=== PATIENT | female | born 1985 | race Asian ===

== ENCOUNTER 2017-06-21 17:48 | Emergency (ER) | payer SELFPAY ==
[2017-06-21] MEDS ORDERED: Adacel (T-DAP) 0.5 ML VIAL ONE (18:02)
== END 2017-06-21 18:30 | disposition home or self-care (01) ==
LOC: SCSER 17:48
DX: S61.215A Laceration without foreign body of left ring finger without damage to nail, initial encounter (principal); W26.0XXA Contact with knife, initial encounter; Y93.G3 Activity, cooking and baking
CPT/HCPCS: 90471; 90715